=== PATIENT | female | born 1960 | race Caucasian/White ===

== ENCOUNTER 2016-12-19 08:42 | Outpatient (CLI) | payer OTHER, MEDICARE ==
--- NOTE | 2016-12-22 17:32 | Mammography Report ---
DIGITAL SCREENING MAMMOGRAM: 12/20/2016 CLINICAL INDICATION: A 56-year-old for screening, history of bilateral reduction. COMPARISON: 09/2015, 02/2011, 11/2007. TECHNIQUE: Routine CC and MLO projections were obtained of the breasts. The breasts again demonstrate scattered fibroglandular densities bilaterally. Punctate, typically be nign calcifications are present. Small circumscribed nodule in the left lower central breast is stab le. No suspicious masses, clustered microcalcifications, or regions of architectural distortion are identified. IMPRESSION: BENIGN FINDINGS. RECOMMENDATION: ROUTINE ANNUAL SCREENING UNLESS OTHERWISE CLINICALLY INDICATED. BIRADS CATEGORY: 2, BENIGN FINDINGS. STANDARD QUALIFYING STATEMENTS 1. This examination was reviewed with the aid of Computed-Aided Detection (CAD). 2. A negative or benign imaging report should not delay biopsy if clinically suspicious findings are present. Consider surgical consultation if warranted. More than 5% of cancers are not identified b y imaging. 3. Dense breasts may obscure an underlying neoplasm. JOB #: [id number] EXT JOB #:[id number]
== END 2016-12-19 08:43 | disposition home or self-care (01) ==
LOC: DI 08:42
DX: Z12.31 Encounter for screening mammogram for malignant neoplasm of breast (principal)
CPT/HCPCS: 77067

== ENCOUNTER 2018-08-10 14:04 | Outpatient (CLI) | payer OTHER ==
--- NOTE | 2018-08-14 13:42 | Mammography Report ---
Reason: SCREENING MAMMO Procedure Date: 08/10/2018 Accession Number: [id number] / [id number] Procedure: HELEN - Screening Mammo w/Arnaud CPT Code: FULL RESULT: EXAM: Screening Mammo w/Arnaud DATE: 08/10/2018 2:43 PM CLINICAL HISTORY: Routine screening TECHNIQUE: (B) - Bilateral CC and MLO views were obtained. COMPARISON: 12/19/2016, 09/29/2015 and 03/07/2011. PARENCHYMAL PATTERN: (A) - The breasts demonstrate scattered fibroglandular densities bilaterally. FINDINGS: No significant interval change. Faint nodular densities in both breasts are stable. There are no suspicious masses, calcifications, or areas of distortion. IMPRESSION: Negative examination. BI-RADS category 1. RECOMMENDATION: (ANNUAL) - Recommend routine annual screening mammography. BI-RADS CATEGORY: (1) - Negative. STANDARD QUALIFYING STATEMENTS: 1. This examination was not reviewed with the aid of Computer-Aided Detection (CAD). 2. A negative or benign imaging report should not preclude biopsy if clinically suspicious findings are present. 3. Dense breasts may obscure an underlying neoplasm. 4. This examination was reviewed with the aid of 3D breast imaging (tomosynthesis).
== END 2018-08-10 14:05 | disposition home or self-care (01) ==
LOC: DI 14:04
PROVIDERS: ATTEND Internal Medicine
DX: Z12.31 Encounter for screening mammogram for malignant neoplasm of breast (principal)
CPT/HCPCS: 77063; 77067

== ENCOUNTER 2020-12-15 13:51 | Outpatient (CLI) | payer OTHER ==
--- NOTE | 2020-12-16 09:35 | Mammography Report ---
BILATERAL DIGITAL SCREENING MAMMOGRAM 3D/2D: 12/15/2020 CLINICAL: Routine screening. Comparison is made to exams dated: 08/10/2018 mammogram, 12/19/2016 mammogram - [facility], and 08/19/2013 mammogram - [facility]. There are scattered fibroglandular eleme nts in both breasts. No significant masses, calcifications, or other findings are seen in either breast. There has been no significant interval change. IMPRESSION: NEGATIVE There is no mammographic evidence of malignancy. A 1 year screening mammogram is recommended. This exam was interpreted at Station ID: [id number]. NOTE: For mammograms, a report in lay terms will be sent to the patient. Approximately 15% of breast malignancies will not be visualized mammographically. In the management of a palpable breast mass, a negative mammogram must not discourage biopsy of a clinically suspicious lesion. Electronically Signed By: Sidney Cadena M.D. ddp/penrad:12/15/2020 16:29:47 ACR BI-RADS Category 1: Negative 3341F PARENCHYMAL PATTERN: (A) - The breast(s) demonstrate(s) scattered fibroglandular densities. BI-RADS CATEGORY: (1) - 1 RECOMMENDATION: (ANNUAL) - Recommend routine annual screening mammography. [id number] 1 year screening LATERALITY: (B)
== END 2020-12-15 13:52 | disposition home or self-care (01) ==
LOC: DI 13:51
PROVIDERS: ATTEND Physician Assistant
DX: Z12.31 Encounter for screening mammogram for malignant neoplasm of breast (principal)

== ENCOUNTER 2021-09-15 08:42 | Outpatient (CLI) | payer OTHER ==
[2021-09-15 09:45] VITALS: BP 117/75
--- NOTE | 2021-09-15 09:45 | SLEEP CARE CONSULTATION ---
Information from patient questionnaire entered by Ilya Samson MA. I have reviewed and concur with the information entered by Ilya Sasmon MA. This document represents the service I personally performed and the decisions made by me, Fanny Lyman ARNP. History of Present Illness Service Date and Time: 09/15/2021 0842 Reason for Visit: New patient (ONSET 08/19/2019, ) Chief Complaint: reports: Unrefreshed sleep, Snoring (when really sick or stuffy), Other (RESTLESS LEGS) Date of Onset: 2 YEARS 6 MONTHS Usual bedtime: 1100 PM Time it takes to fall asleep: within minutes to a couple hours Snores at night: Yes (SOMETIMES) Observed to quit breathing while asleep: No Sleeps alone due to snoring: No Number of times waking at night: 5-6 Reasons for waking at night: reports: Bathroom. denies: Choking, Snoring, Gasping for air Toss, Turn, or Twitch while sleeping: Yes Recalls having dreams: Yes Usually gets out of bed at: 0800 Feels refreshed in the morning: No (depends on night's sleep) Morning headache: Yes (back of head usually, 4-5 days a week; gone by midday) Sleepy or fatigued during the day: Yes Ever fallen asleep while driving: No Takes day naps: Yes (rarely, only 30 minutes ) Dreams during day naps: No Prior sleep studies: No Additional HPI information: I had the pleasure of seeing LUZ WASHINGTON today regarding the possibility of her having a sleep disorder. Her current complaint is restless legs. Patient states she sometimes snores. She was on methadone but stopped taking it about 2.5 years ago. Since she stopped she has developed lots of leg movements. She is kicking in been in bed, sometimes real hard. She states that since she made appointment to come in the movements have been greatly reduced. She states her snore is usually more apparent when she is congested. She states she does not always wake up feeling refreshed. It usually depends on how she sleeps the night before, lately she has not been sleeping well due to stress. She has an alcoholic daughter who she is dealing with and hoping to get into rehab later today. She does wake up with headaches but states they are usually at the base of her neck and resolve by midday. She has had ex tensive jaw reconstruction surgeries (seven) to fix a bite problem in 1990. Her upper jaw teeth hit the lower teeth causing damage. She still has some pain in her upper jaw. - Parasomnia Symptoms Ever been unable to move upon waking from sleep: No Walks in sleep: No Talks in sleep: No Ever acted out dreams in sleep: No Ever felt weak in the knees when startled or emotional: No Bothered by creepy, crawly, restless sensations in legs: Yes (in bed or resting, better lately) Problems with memory or concentration: No Subjective Initial [place] Sleepiness Scale score: 3 (09/15/2021) Past Medical History Past Medical History: reports: Hypertension, Arthritis, Fibromyalgia, Asthma, Other (multiple jaw surgeries; see scanned medical history) Social History The patient's occupation is a DISABLED. Patient is and lives in [place]. Have you smoked in the past 12 months: No Alcohol use: Yes Alcohol amount and frequency: 1 X MONTHLY Caffeine use: Yes Caffeine amount and frequency: 2-3 X DAILY Family History Family history of sleep disordered breathing: No Family Hx Sleep Apnea: Father: Snoring (maybe) Allergies and Home Medications Known drug allergies: Yes (SULFA LISINOPRIL LOSARTAN) Drug allergies reviewed: Yes Home medication list reviewed: Yes (Clorthalidone, vitamins) Allergy and home medication list: Allergies lisinopril Allergy (Verified 03/15/21 11:56) Unknown Sulfa (Sulfonamide Antibiotics) Allergy (Verified 03/15/21 11:56) Unknown Review of Systems Review of systems same as previous: Yes Weight loss over past 5 years: 10 Cardiovascular: reports: high blood pressure Respiratory: reports: chronic cough Urinary: reports: frequency Neurological: reports: headaches Ear/Nose/Throat: reports: sinus problems Musculoskeletal: reports: joint pain, neck pain, back pain, muscle pain or cramping Immunologic: reports: sneezing, allergies to food or environment Physical Exam Vital signs obtained and entered by: Lizeth SAMSON CMA VASILE Blood Pressure: 117/75 (RESP 16, PULSE 77, LEFT,) Heart Rate: 76 O2 Saturation: 98 (PAPER MASK) Height: 5 ft 4 in Weight: 164 lb 8 oz (CLOTHES) Weight change since last visit: PORTIONS AND WALK, LOST 10 LBS, Body Mass Index: 28.2 BMI Classification: Overweight Neck circumference: 15 (INCHES) Soft palate: long Hard palate: normal Uvula: normal Uvula visualization: 25% Mallampati Class III Tongue: normal in size Tonsils: 1+ Heart: regular rate and rhythm Lungs: clear bilaterally Impression and Plan 1. Suspected Obstructive Sleep Apnea-Hypopnea Syndrome, as suggested by a history of irregular snoring, morning headaches, frequent awakenings during the night, unrefreshed sleep and restless leg movements at night. Patient has history of hypertension. Narrow oropharynx and obesity are common predisposing factors for obstructive sleep apnea-hypopnea syndrome. I recommend proceeding to polysomnography to confirm the diagnosis and to assess severity. If the patient has significant sleep disordered breathing, a manual CPAP titration study will also be performed to find the optimal treatment pressure. I informed the patient of what the sleep studies involve and after some discussion, obtained agreement to proceed. The pathophysiology of obstructive sleep apnea-hypopnea syndrome was discussed with the patient and health risks of cardiovascular and cerebrovascular disease if not treated. Risks of drowsy driving discussed in detail and patient advised to avoid long distance driving and to bone puller at the first sign of drowsiness. Patient agreed to plan. * Schedule polysomnography * Avoid long distance driving or driving when feeling sleepy. * Avoid alcohol, sedative and muscle relaxant around bedtime. * Attempt to lose weight. * Review instructions provided by trained office staff on how to prepare for the sleep study. * Return for follow-up after sleep study completed. Counseling Topics: Weight loss health impact Visit Type: In Office Time Spent with Patient (minutes): 31 Provider Statement: I spent 100% of the Face to Face Visit with the patient with greater than 50% spent counseling the patient and coordination of care.
== END 2021-09-15 08:43 | disposition home or self-care (01) ==
LOC: SC 08:42
PROVIDERS: ATTEND Nurse Practitioner Family
DX: R06.83 Snoring (principal); G47.8 Other sleep disorders; G47.61 Periodic limb movement disorder; R51.9 Headache, unspecified; I10 Essential (primary) hypertension; E66.3 Overweight; Z68.28 Body mass index [BMI] 28.0-28.9, adult
CPT/HCPCS: 99203; 99212

== ENCOUNTER 2021-12-17 11:00 | Outpatient (CLI) | payer OTHER ==
[2021-12-17 11:58] VITALS: BP 124/82
--- NOTE | 2021-12-17 11:58 | SLEEP CARE CONSULTATION ---
Information from patient questionnaire entered by Sky Cortez. I have reviewed and concur with the information entered by Sky Cortez. This document represents the service I personally performed and the decisions made by , Fanny Lyman ARNP. History of Present Illness Service Date and Time: 12/17/2021 1100 Previous diagnosis: Mild, Obstructive Sleep Apnea-Hypopnea Syndrome AHI: 8.0 (in 2021) Reason for follow up: other (ASSSISTANCE WITH CPAP MACHINE) Equipment type: CPAP (ResMed) Equipment obtained from: Other ([place]) Mask style: Nasal pillows Mask brand: Resmed (Leslie FX - provided by [facility]) Prior sleep studies: No Type of Sleep Study: Polysomnography (F/U POLY, 08/23/2021 [facility], POS) HPI additional information: LUZ WASHINGTON was diagnosed to have mild, AHI 8.0, obstructive sleep apnea- hypopnea syndrome and returned today for CPAP therapy follow-up. Sleep Study - Results Type of Sleep Study: Polysomnography (F/U POLY, 08/23/2021 [facility], POS) Prior sleep studies: No CPAP Compliance Data Compliance data discussion: She received her machine about 1.5 weeks ago. She is here to be shown how to use machine and get fitted with mask. Subjective Initial [place] Sleepiness Scale score: 3 (09/15/2021) Current [place] Sleepiness Scale score: 2 (12/17/21) Allergies and Home Medications Drug allergies reviewed: Yes (lisinopril, sulfa) Home medication list reviewed: Yes (no changes) Allergy and home medication list: Allergies lisinopril Allergy (Verified 03/15/21 11:56) Unknown Sulfa (Sulfonamide Antibiotics) Allergy (Verified 03/15/21 11:56) Unknown Review of Systems Review of systems same as previous: Yes (no changes) Physical Exam Vital signs obtained and entered by: VASILE BLAKE Blood Pressure: 124/82 (left arm ) Cuff size: regular Heart Rate: 71 O2 Saturation: 98 Height: 5 ft 4 in Weight: 166 lb Body Mass Index: 28.5 BMI Classification: Overweight Impression and Plan 1. Obstructive Sleep Apnea-Hypopnea Syndrome, mild. Patient comes in today for assistance in setting up her new CPAP and a mask fitting. She did not get any support like this from her DME and asked for help in our office. I showed patient how to turn on her device, adjustments she can make with humidity or heated hose and how to program supervisor tubing and mask. I had our Lead Felt Finisher, Sidney, come in and fit her with her mask. She was fitted with a [employer] Dreamwear nasal cushion mask because the nasal pillows mask she brought in did not fit well and patient did not find it comfortable. She liked the fit of the Dreamwear nasal cushion mask. She voiced understanding of teaching and demonstrated ability to use her CPAP. Patient will follow up with us in 1 month to check her compliance on her CPAP and see how she is doing with therapy. Patient's apnea severity and rationale for treatment to reduce apnea, improve sleep quality and reduce cardiovascular and cerebrovascular events was reviewed. I also reviewed the benefit of consistent device use of CPAP for hypertension, fibromyalgia and asthma. * Auto CPAP pressure at 4-15 cmH2O * Patient fitted to [employer] Dreamwear nasal cushion mask * Notify me if snoring with mask or feeling that the pressure is too much or too little * Call this office if any problems using CPAP * Return for follow up in one month, or sooner if concerns arise Mask provided: Yes Follow up with Sleep Care in: 1-2 months Visit Type: In Office Time Spent with Patient (minutes): 22 Provider Statement: I spent 100% of the Face to Face Visit with the patient with greater than 50% spent counseling the patient and coordination of care.
== END 2021-12-17 11:01 | disposition home or self-care (01) ==
LOC: SC 11:00
PROVIDERS: ATTEND Nurse Practitioner Family
DX: G47.33 Obstructive sleep apnea (adult) (pediatric) (principal)
CPT/HCPCS: 99212; 99213

== ENCOUNTER 2022-01-21 10:56 | Outpatient (CLI) | payer OTHER ==
[2022-01-21 11:46] VITALS: BP 128/76
--- NOTE | 2022-01-21 11:46 | SLEEP CARE CONSULTATION ---
Information from patient questionnaire entered by Davide Saleh. I have reviewed and concur with the information entered by Davide Saleh. This document represents the service I personally performed and the decisions made by me, Fanny Lyman ARNP. History of Present Illness Service Date and Time: 01/21/2022 1056 Previous diagnosis: Mild, Obstructive Sleep Apnea-Hypopnea Syndrome AHI: 8.0 (in 2021) Reason for follow up: first compliance Equipment type: CPAP (ResMed) Equipment obtained from: Other ([place]) Mask style: Nasal Mask brand: Respironics (Dreamwear) Backup mask available: Yes (other mask) Prior sleep studies: No Type of Sleep Study: Polysomnography (F/U POLY, 08/23/2021 [facility], POS) HPI additional information: LUZ WASHINGTON was diagnosed to have mild, AHI 8.0, obstructive sleep apnea- hypopnea syndrome and returned today for CPAP therapy first compliance follow- up. Sleep Study - Results Type of Sleep Study: Polysomnography (F/U POLY, 08/23/2021 [facility], POS) Prior sleep studies: No CPAP Compliance Data - Data Reviewed with Patient Average duration of nightly device use: 3 hours 51 minutes Compliance rate %: 7 (10/16 days) Current pressure setting (cmH2O): 4-20 (median 7.5, avg 9.9, max 10.5) Average residual AHI: 1.2 Central apnea: 0.8 Obstructive apnea: 0.1 Subjective Patient concerns: reports: aerophagia (just a couple times), dry mouth, nose, throat, other (hurting bottom of nose ). denies: mask discomfort, air blowing in eyes, mask leak noise, condensation in mask/hose, nasal congestion, epistaxis Observed to snore while using device: No Current pressure setting perceived as: comfortable On therapy, patient: reports: other (not difference yet). denies: drowsiness while driving Initial [place] Sleepiness Scale score: 3 (09/15/2021) Current [place] Sleepiness Scale score: 2 Allergies and Home Medications Drug allergies reviewed: Yes (lisinopril, sulfa) Home medication list reviewed: Yes (no changes) Review of Systems Review of systems same as previous: Yes (no changes) Physical Exam Vital signs obtained and entered by: DAVIDE Hurtado MA Blood Pressure: 128/76 (left arm) Cuff size: regular Heart Rate: 63 O2 Saturation: 97 Height: 5 ft 4 in Weight: 162 lb 9.6 oz Body Mass Index: 27.8 BMI Classification: Overweight Impression and Plan 1. Obstructive Sleep Apnea-Hypopnea Syndrome, mild, with poor treatment compliance and good apnea control. Patient has been having some pain under nose from the nasal cushion on her Dreamwear mask. She cannot tolerate the pain after a few hours use. She also experienced some aerophagia the first couple nights but this has improved. I had her try a nasal pillows cushion of the Dreamwear mask and she is going to see if this is more comfortable. She does not want to try a full face mask because it would sit on bridge of nose where she is sensitive to pain due to previous issues/injuries. The patients pressure will be changed to autoCPAP 7-10 cmH20 to reflect pressure being used. Patient advised to contact me if pressure change is uncomfortable so that it can be adjusted. Goals for apnea control discussed. Patient's apnea severity and rationale for treatment to reduce apnea, improve sleep quality and reduce cardiovascular and cerebrovascular events was reviewed. I also reviewed the benefit of consistent device use of CPAP for hypertension, fibromyalgia and asthma. She is going on a month long cruise next week and is not sure she wants to take the machine with her. I advised her to try so she can get her compliance up for the insurance as well as the benefit for her health. She states she will think on it. I will follow up with her when she returns. 2. Overweight, unspecified. Currently patients BMI is 27.9. Obesity increases the risk of apnea, CPAP pressure requirements and overall health risks especiall y cardiovascular and diabetes. Thus patient is advised to lose weight. Weight loss can be done with reducing portion size, reducing refined foods and balancing content with vegetables, fruit and whole grain foods. In addition, patient encouraged to get regular exercise. * Change auto CPAP pressure to 7-10 cmH2O * Notify me if snoring with mask or feeling that the pressure is too much or too little * Attempt to lose weight * Call this office if any problems using CPAP * Return for follow up in 1-2 months, or sooner if concerns arise Counseling Topics: Spare mask, Weight loss health impact Visit Type: In Office Time Spent with Patient (minutes): 22 Provider Statement: I spent 100% of the Face to Face Visit with the patient with greater than 50% spent counseling the patient and coordination of care.
== END 2022-01-21 10:57 | disposition home or self-care (01) ==
LOC: SC 10:56
PROVIDERS: ATTEND Nurse Practitioner Family
DX: G47.33 Obstructive sleep apnea (adult) (pediatric) (principal); E66.3 Overweight; Z68.27 Body mass index [BMI] 27.0-27.9, adult
CPT/HCPCS: 99212; 99213

== ENCOUNTER 2022-03-02 13:12 | Outpatient (CLI) | payer OTHER ==
[2022-03-02 13:34] VITALS: BP 142/84
--- NOTE | 2022-03-02 13:34 | SLEEP CARE CONSULTATION ---
Information from patient questionnaire entered by Davide Saleh. I have reviewed and concur with the information entered by Davide Saleh. This document represents the service I personally performed and the decisions made by , Fanny Lyman ARNP. History of Present Illness Service Date and Time: 03/02/2022 1312 Previous diagnosis: Mild, Obstructive Sleep Apnea-Hypopnea Syndrome AHI: 8.0 (in 2021) Reason for follow up: one month (F/U) Equipment type: CPAP (ResMed Airsense 11) Equipment obtained from: [place] ([place]) Mask style: Nasal pillows Backup mask available: Yes (other mask) Prior sleep studies: No Type of Sleep Study: Polysomnography (F/U POLY, 08/23/2021 [facility], POS) HPI additional information: LUZ WASHINGTON was diagnosed to have mild, AHI 8.0, obstructive sleep apnea- hypopnea syndrome and returned today for CPAP therapy one month follow-up. Sleep Study - Results Type of Sleep Study: Polysomnography (F/U POLY, 08/23/2021 [facility], POS) Prior sleep studies: No CPAP Compliance Data - Data Reviewed with Patient Average duration of nightly device use: 3 hours 51 mins Compliance rate %: 7 (-12/27/2021) Current pressure setting (cmH2O): 4-20 Average residual AHI: 1.2 Central apnea: 0.8 Obstructive apnea: 0.1 Compliance data discussion: She states she took her CPAP with her on vacation but she was unable to use it because she was missing a piece of the hose connection. Subjective Missed days of use due to: reports: travel, other (lost hose connection ) Patient concerns: reports: mask discomfort (has a new mask she will try once she can get hose to connect to device). denies: aerophagia, air blowing in eyes, mask leak noise, condensation in mask/hose, nasal congestion, dry mouth, nose, throat, epistaxis Observed to snore while using device: No Current pressure setting perceived as: comfortable On therapy, patient: reports: sleeping better, awakening more refreshed, being more awake and alert during the day, more rested overall. denies: drowsiness while driving Initial [place] Sleepiness Scale score: 3 (09/15/2021) Current [place] Sleepiness Scale score: 0 (03/02/22) Allergies and Home Medications Drug allergies reviewed: Yes (lisinopril, sulfa) Home medication list reviewed: Yes (no changes) Allergy and home medication list: Allergies lisinopril Allergy (Verified 01/21/22 11:20) Unknown Sulfa (Sulfonamide Antibiotics) Allergy (Verified 01/21/22 11:20) Unknown Review of Systems Review of systems same as previous: Yes (no changes) Physical Exam Vital signs obtained and entered by: DAVIDE Hurtado MA Blood Pressure: 142/84 (LEFT ARM) Cuff size: regular Heart Rate: 70 O2 Saturation: 98 Height: 5 ft 4 in Weight: 166 lb Body Mass Index: 28.5 BMI Classification: Overweight Impression and Plan 1. Obstructive Sleep Apnea-Hypopnea Syndrome, mild, with poor treatment compliance and good apnea control. On CPAP therapy, the patient has better sleep quality and is more rested overall. She was unable to use her CPAP when on vacation because a hose connection was lost. She will need to get a replacement and then I will have her follow up in about a month. Patient's apnea severity and rationale for treatment to reduce apnea, improve sleep quality and reduce cardiovascular and cerebrovascular events was reviewed. I also reviewed the benefit of consistent device use of CPAP for hypertension, fibromyalgia and as thma. 2. Overweight unspecified. Currently patients BMI is 28.5. Obesity increases the risk of apnea, CPAP pressure requirements and overall health risks especially cardiovascular and diabetes. Thus patient is advised to lose weight. * Continue auto CPAP pressure at 7-10 cmH2O * obtain hose connection to be able to use CPAP * Notify me if snoring with mask or feeling that the pressure is too much or too little * Attempt to lose weight * Call this office if any problems using CPAP * Return for follow up in 1-2 months, or sooner if concerns arise Counseling Topics: Spare mask, Weight loss health impact Visit Type: In Office Time Spent with Patient (minutes): 12 Provider Statement: I spent 100% of the Face to Face Visit with the patient with greater than 50% spent counseling the patient and coordination of care.
== END 2022-03-02 13:13 | disposition home or self-care (01) ==
LOC: SC 13:12
PROVIDERS: ATTEND Nurse Practitioner Family
DX: G47.33 Obstructive sleep apnea (adult) (pediatric) (principal); E66.3 Overweight; Z68.28 Body mass index [BMI] 28.0-28.9, adult
CPT/HCPCS: 99212

== ENCOUNTER 2022-05-06 11:12 | Emergency (ER) | payer MEDICARE, OTHER ==
[2022-05-06 11:18] VITALS: BP 140/90
[2022-05-06 11:28] LABS: BILIRUBIN,URINE NEGATIVE (NEGATIVE); GLUCOSE, URINE (UA) NEGATIVE (NEGATIVE); KETONES,URINE (UA) NEGATIVE (NEGATIVE); LEUKOCYTE ESTERASE, URINE MODERATE (NEGATIVE); NITRITE,URINE POSITIVE (NEGATIVE); OCCULT BLOOD,URINE SMALL (NEGATIVE); PH,URINE 6.5 PH (5.0-7.5); PROTEIN,URINE TRACE mg/dL (NEGATIVE); UROBILINOGEN,URINE 0.2 (NORMAL) E.U./dL (NORMAL)
[2022-05-06 11:29] LABS: CLARITY,URINE SL. CLOUDY (CLEAR)
[2022-05-06] MEDS ORDERED: NITROFURANTOIN MACRO 100 MG CAPSULE PO STA (11:33)
--- NOTE | 2022-05-06 11:36 | ED Physician Documentation ---
PD HPI FEMALE - Stated complaint Stated Complaint: F - Chief complaint Chief Complaint: UTI - History obtained from History obtained from: Patient - History of Present Illness Timing - onset: Today Timing - duration: Days (1) Timing - details: Gradual onset Associated symptoms: Dysuria, Urinary frequency. No: Fever, Vaginal pain, Vaginal bleeding, Vaginal discharge, Hematuria - Additional information Additional information: 62-year-old female presents to the emergency department complaining of dysuria and urinary frequency. Started last night. Has history of UTI in the past. This feels similar. No fever. no chills. no back pain. no vomiting. no abd pain. Review of Systems Skin: denies: Rash Musculoskeletal: denies: Neck pain, Back pain Neurologic: denies: Headache PD PAST MEDICAL HISTORY - Past Medical History Past Medical History: Yes Musculoskeletal: Osteoarthritis, Fibromyalgia, Chronic back pain - Present Medications Home Medications: Ambulatory Orders Medication Instructions Recorded Confirmed Nitrofurantoin [Macrobid] 100 mg PO BID #10 cap 03/15/21 03/02/22 Phenazopyridine HCl [Pyridium] 200 mg PO TID PRN #6 tablet 03/15/21 03/02/22 Nitrofurantoin [Macrobid] 100 mg PO BID #10 cap 05/06/22 - Allergies Allergies/Adverse Reactions: Allergies Allergy/AdvReac Type Severity Reaction Status Date / Time lisinopril Allergy Unknown Verified 05/06/22 11:15 Sulfa (Sulfonamide Allergy Unknown Verified 05/06/22 11:15 Antibiotics) PD ED PE NORMAL - Vitals Vital signs reviewed: Yes - General General: Alert and oriented X 3, No acute distress - HEENT HEENT: Moist mucous membranes - Neck Neck: Supple, no meningeal sign - Cardiac Cardiac: RRR - Respiratory Respiratory: No respiratory distress, Clear bilaterally - Abdomen Abdomen: Soft, Non tender, Non distended - Back Back: No CVA TTP, No spinal TTP - Derm Derm: Warm and dry - Neuro Neuro: Alert and oriented X 3 Results - Vitals Vitals: Vital Signs - 24 hr 05/06/22 11:15 Temperature 36.5 C Heart Rate 80 Respiratory 16 Rate Blood Pressure 140/90 H O2 Saturation 98 Oxygen O2 Source Room air - Labs Labs: Laboratory Tests 05/06/22 11:22 Urine Color DARK YELLOW Urine Clarity SL. CLOUDY Urine pH 6.5 Ur Specific [place] 1.010 Urine Protein TRACE Urine Glucose (UA) NEGATIVE Urine Ketones NEGATIVE Urine Occult Blood SMALL H Urine Nitrite POSITIVE H Urine Bilirubin NEGATIVE Urine Urobilinogen 0.2 (NORMAL) Ur Leukocyte Esterase MODERATE H Urine RBC 6-10 H Urine WBC >25 H Ur Squamous Epith Cells FEW Squamous Urine Bacteria Few Ur Microscopic Review INDICATED Urine Culture Comments INDICATED PD Medical Decision Making - ED course Complexity details: reviewed results, re-evaluated patient, considered differential, d/w patient ED course: Patient with UTI. Urinalysis is consistent with this. No evidence of sepsis. No evidence of pyelonephritis. Patient is well-appearing, nontoxic. Patient counseled regarding signs and symptoms for which I believe and urgent re- evaluation would be necessary. Patient with good understanding of and agreement to plan and is comfortable going home at this time This document was made in part using voice recognition software. While efforts are made to proofread this document, sound alike and grammatical errors may occur. Departure - Departure Disposition: 01 Home, Self Care Clinical Impression: Urinary tract infection Qualifiers: Urinary tract infection type: acute cystitis Hematuria presence: without hematuria Qualified Code(s): N30.00 - Acute cystitis without hematuria Condition: Good Instructions: ED UTI Cystitis Female Follow-Up: your,doctor as needed [Other] Prescriptions: Nitrofurantoin [Macrobid] 100 mg PO BID #10 cap Comments: Your prescription was sent to the [facility]. Please follow-up with your doctor for further care. Please return if you worsen. Take all antibiotics until gone. Discharge Date/Time: 05/06/22 11:47
[2022-05-06 11:48] LABS: WBC,URINE >25 /HPF (0-5)
[2022-05-06 11:49] LABS: BACTERIA,URINE Few /HPF (None Seen); SQUAMOUS EPITHELIAL CELL,UR FEW Squamous (<= Few)
== END 2022-05-06 11:47 | disposition home or self-care (01) ==
LOC: ED 11:12
DX: N30.00 Acute cystitis without hematuria (principal); Z87.440 Personal history of urinary (tract) infections; Z88.2 Allergy status to sulfonamides
CPT/HCPCS: 81001; 87077; 87086; 87181; 99283; A9270; 81003

== ENCOUNTER 2022-10-12 11:03 | Outpatient (CLI) | payer OTHER ==
--- NOTE | 2022-10-12 11:32 | Sleep Patient Instructions ---
Sleep Center Visit Summary - Patient Visit Information Reason for Visit: Seven month followup for PAP therapy - Patient Instructions Additional Instructions: You were here for follow up of CPAP therapy. You will be continued on CPAP therapy with pressure at 4-10 cmH2O. Please let us know if the pressure change is uncomfortable and we can make further adjustments of the pressure. You should follow up with sleep care in 1-2 months. You may contact us sooner for any questions or concerns. - Clinic Information Contact: [facility] [address] [place] [address] [email or web address] T: [phone]
--- NOTE | 2022-10-12 11:40 | SLEEP CARE CONSULTATION ---
Information from patient questionnaire entered by Davide Saleh. I have reviewed and concur with the information entered by Davide Saleh. This document represents the service I personally performed and the decisions made by , Fanny Lyman ARNP. History of Present Illness Service Date and Time: 10/12/2022 1103 Previous diagnosis: Mild, Obstructive Sleep Apnea-Hypopnea Syndrome AHI: 8.0 (in 2021) Reason for follow up: other (7 MONTH F/U SD CARD NEEDED) Equipment type: CPAP (ResMed Airsense 11; s/u 11/2021) Equipment obtained from: Other ([place]) Mask style: Nasal pillows Backup mask available: Yes (other mask) Prior sleep studies: No Type of Sleep Study: Polysomnography (F/U POLY, 08/23/2021 [facility], [place]) HPI additional information: LUZ WASHINGTON was diagnosed to have mild, AHI 8, obstructive sleep apnea- hypopnea syndrome and returned today for CPAP therapy seven month follow-up. Sleep Study - Results Type of Sleep Study: Polysomnography (F/U POLY, 08/23/2021 [facility], POS) Prior sleep studies: No CPAP Compliance Data - Data Reviewed with Patient Average duration of nightly device use: 10 minutes Compliance rate %: 0 (1180 days used) Current pressure setting (cmH2O): 7-10 Average residual AHI: 0 Average large leak: 6 L/min Subjective Patient concerns: reports: aerophagia, mask leak noise (leaking on top of head, irritating). denies: mask discomfort, air blowing in eyes, condensation in mask/hose, nasal congestion, dry mouth, nose, throat, epistaxis Observed to snore while using device: No Current pressure setting perceived as: too high On therapy, patient: denies: drowsiness while driving Initial [place] Sleepiness Scale score: 3 (09/15/2021) Current [place] Sleepiness Scale score: 2 (10/12/22) Allergies and Home Medications Known drug allergies: Yes (as listed) Drug allergies reviewed: Yes Home medication list reviewed: Yes (Pregablin 75 mg cap; Colerys 0.6 tab; Macrobid 100 mg cap) Allergy and home medication list: Allergies lisinopril Allergy (Verified 10/11/22 13:44) Unknown losartan Allergy (Verified 10/11/22 13:44) Respiratory Sulfa (Sulfonamide Antibiotics) Allergy (Verified 10/11/22 13:44) Unknown Review of Systems Review of systems same as previous: No (pinched nerves in back, in PT) Physical Exam Vital signs obtained and entered by: DAVIDE Hurtado MA Blood Pressure: 118/76 (LEFT ARM) Cuff size: regular Heart Rate: 71 O2 Saturation: 97 Height: 5 ft 4 in Weight: 173 lb 12.8 oz Body Mass Index: 29.8 BMI Classification: Overweight Impression and Plan 1. Obstructive Sleep Apnea-Hypopnea Syndrome, mild, with poor treatment compliance and unknown apnea control. Patient states she could not use her CPAP because an adaptor for her mask was lost after her last appointment with us. She reached out to the ID and after some time was able to get a new hose and a new mask. She does not like the Dreamwear nasal cushion because the air leaks at the back of her head and it is "irritating" to her. She has a nasal pillows mask that she would rather use but does not think it will hook to her hose. We tried in the office and it did fit and she states she will try this mask now. She feels like the pressure was too high with the mask leaking under her nose. I wi ll adjust her pressure to 4-10 cmH2O to help her to get used to the lower pressure. Changing to the nasal pillows mask may also reduce air leaking and be more comfortable. Patient's apnea severity and rationale for treatment to reduce apnea, improve sleep quality and reduce cardiovascular and cerebrovascular events was reviewed. I also reviewed the benefit of consistent device use of CPAP for hypertension, fibromyalgia and asthma. 2. Overweight, unspecified. Currently patients BMI is 29.8. Obesity increases the risk of apnea, CPAP pressure requirements and overall health risks especially cardiovascular and diabetes. Thus patient is advised to lose weight. * Change auto CPAP pressure to 4-10 cmH2O * Notify me if snoring with mask or feeling that the pressure is too much or too little * Attempt to lose weight * Call this office if any problems using CPAP * Return for follow up in 1-2 months, or sooner if concerns arise Counseling Topics: Spare mask, Weight loss health impact Visit Type: In Office Time Spent with Patient (minutes): 25 Provider Statement: I spent 100% of the Face to Face Visit with the patient with greater than 50% spent counseling the patient and coordination of care.
[2022-10-12 11:46] VITALS: BP 118/76
== END 2022-10-12 11:04 | disposition home or self-care (01) ==
LOC: SC 11:03
PROVIDERS: ATTEND Nurse Practitioner Family
DX: G47.33 Obstructive sleep apnea (adult) (pediatric) (principal); E66.3 Overweight; Z68.29 Body mass index [BMI] 29.0-29.9, adult
CPT/HCPCS: 99212; 99213

== ENCOUNTER 2022-11-22 10:47 | Outpatient (CLI) | payer OTHER ==
--- NOTE | 2022-11-22 11:22 | Sleep Patient Instructions ---
Sleep Center Visit Summary - Patient Visit Information Reason for Visit: 6 WEEK FOLLOW UP FOR PAP THERAPY - Patient Instructions Additional Instructions: You were here for follow up of CPAP therapy. You will be continued on CPAP therapy with pressure at 4-10 cmH2O. You were fitted to a [employer]wear nasal cushion mask, size small. You should follow up with sleep care in 1-2 months. You may contact us sooner for any questions or concerns. - Clinic Information Contact: [facility] [address] [place] [address] [email or web address] T: [phone]
--- NOTE | 2022-11-22 11:26 | SLEEP CARE CONSULTATION ---
Information from patient questionnaire entered by Davide Saleh. I have reviewed and concur with the information entered by Davide Saleh. This document represents the service I personally performed and the decisions made by , Fanny Lyman ARNP. History of Present Illness Service Date and Time: 11/22/2022 1047 Previous diagnosis: Mild, Obstructive Sleep Apnea-Hypopnea Syndrome AHI: 8 (in 2021) Reason for follow up: other (6 WEEK F/U) Equipment type: CPAP (ResMed Airsense 11; s/u 11/2021) Equipment obtained from: [employer] ([place]) Mask style: Nasal (with a nasal pillows mask as alternative) Backup mask available: Yes (other mask) Prior sleep studies: No Type of Sleep Study: Polysomnography (F/U POLY, 08/23/2021 [facility], POS) HPI additional information: LUZ WASHINGTON was diagnosed to have mild, AHI 8, obstructive sleep apnea- hypopnea syndrome and returned today for CPAP therapy six weeks follow-up. Sleep Study - Results Type of Sleep Study: Polysomnography (F/U POLY, 08/23/2021 [facility], POS) Prior sleep studies: No CPAP Compliance Data - Data Reviewed with Patient Average duration of nightly device use: 3 hours 22 minutes Compliance rate %: 23 (28/44 days used) Current pressure setting (cmH2O): 4-10 Average residual AHI: 0.7 Central apnea: 0.1 Obstructive apnea: 0.4 Average large leak: 0.3 L/min Subjective Missed days of use due to: reports: mask issues (pain in face with type of mask pressure ) Patient concerns: reports: mask discomfort (has had facial surgeries and residual pain with wearing mask), other (wheezing during the day; headaches from pain from mask). denies: aerophagia, air blowing in eyes, mask leak noise, condensation in mask/hose, nasal congestion, dry mouth, nose, throat, epistaxis Observed to snore while using device: No Current pressure setting perceived as: comfortable On therapy, patient: reports: other (she does not feel different right now). denies: drowsiness while driving Initial [place] Sleepiness Scale score: 3 (09/15/2021) Current [place] Sleepiness Scale score: 1 (11/22/22) Allergies and Home Medications Known drug allergies: Yes (as listed) Drug allergies reviewed: Yes Home medication list reviewed: Yes (as updated in EMR) Allergy and home medication list: Allergies lisinopril Allergy (Verified 11/18/22 09:30) Unknown losartan Allergy (Verified 11/18/22 09:30) Respiratory Sulfa (Sulfonamide Antibiotics) Allergy (Verified 11/18/22 09:30) Unknown Review of Systems Review of systems same as previous: Yes (no changes) Physical Exam Vital signs obtained and entered by: DAVIDE Hurtado MA Blood Pressure: 128/76 (LEFT ARM) Cuff size: regular Heart Rate: 63 O2 Saturation: 97 Height: 5 ft 4 in Weight: 176 lb 6.4 oz Body Mass Index: 30.2 BMI Classification: Obese Impression and Plan 1. Obstructive Sleep Apnea-Hypopnea Syndrome, mild, with good treatment compliance and poor apnea control. She has been having trouble with tolerating the mask because the pressure of the mask causes an increase in pain. She has had previous facial injuries and surgeries which causes difficulty/pain and headaches with pressure above her nose and sides of her nose. She states she u sed to be on a nasal cushion that went under her nose that was more comfortable. She does not tolerate the nasal pillows that go into her nose either, because it also causes pain. I fit her with a DreamWear nasal cushion, small headgear and nasal cushion. She felt it would work well and be more comfortable. I will send this sample home with her and she can order more supplies as needed. I will have her follow-up in 1 to 2 months to recheck her compliance. Patient's apnea severity and rationale for treatment to reduce apnea, improve sleep quality and reduce cardiovascular and cerebrovascular events was reviewed. I also reviewed the benefit of consistent device use of CPAP for hypertension, fibromyalgia and asthma. 2. Obesity, unspecified. Currently patients BMI is 30.2. Obesity increases the risk of apnea, CPAP pressure requirements and overall health risks especially cardiovascular and diabetes. Thus patient is advised to lose weight. * Continue auto CPAP pressure at 4-10 cmH2O * Patient fitted to Dreamwear nasal cushion mask, small cushion and headgear * Notify me if snoring with mask or feeling that the pressure is too much or too little * Attempt to lose weight * Call this office if any problems using CPAP * Return for follow up in 1-2 months, or sooner if concerns arise Mask provided: Yes Counseling Topics: Spare mask, Weight loss health impact Visit Type: In Office Time Spent with Patient (minutes): 24 Provider Statement: I spent 100% of the Face to Face Visit with the patient with greater than 50% spent counseling the patient and coordination of care.
[2022-11-22 11:30] VITALS: BP 128/76; O2SAT 97
== END 2022-11-22 10:48 | disposition home or self-care (01) ==
LOC: SC 10:47
PROVIDERS: ATTEND Nurse Practitioner Family
DX: G47.33 Obstructive sleep apnea (adult) (pediatric) (principal); E66.9 Obesity, unspecified; Z68.30 Body mass index [BMI] 30.0-30.9, adult
CPT/HCPCS: 99212; 99213

== ENCOUNTER 2023-02-17 13:48 | Outpatient (CLI) | payer OTHER ==
--- NOTE | 2023-02-20 10:58 | Mammography Report ---
BILATERAL DIGITAL SCREENING MAMMOGRAM 3D/2D: 02/17/2023 CLINICAL: Routine screening. Comparison is made to exams dated: 12/15/2020 mammogram, 08/10/2018 mammogram, [facility] 10/13/2015 mammogram, 09/29/2015 mammogram - [facility], and 08/19/2013 m ammogram - [facility]. Both breasts are almost entirely fatty (category a/<25% glandular tissue). No significant masses, calcifications, or other findings are seen in either breast. There has been no significant interval change. IMPRESSION: NEGATIVE There is no mammographic evidence of malignancy. A 1 year screening mammogram is recommended. Based on the Tyrer Cuzick model (a risk assessment model) the patients lifetime risk is 3.1% and her 10 year risk is 1.3%. According to the ACR, ACS, and NCCN guidelines, an annual breast MRI exam gene g with mammogram is recommended if the patients lifetime risk is 20% or greater. This exam was interpreted at Station ID: [id number]. NOTE: For mammograms, a report in lay terms will be sent to the patient. Approximately 15% of breast malignancies will not be visualized mammographically. In the management of a palpable breast mass, a negative mammogram must not discourage biopsy of a clinically suspicious lesion. Electronically Signed By: Stephany [email or web address]:02/17/2023 17:25:31 letter sent: No_Letter ACR BI-RADS Category 1: Negative 3341F PARENCHYMAL PATTERN: (F) - The breast(s) demonstrate(s) diffuse fatty replacement. BI-RADS CATEGORY: (1) - 1 Mammogram [id number] 1 year screening LATERALITY: (B)
== END 2023-02-17 13:49 | disposition home or self-care (01) ==
LOC: DI 13:48
PROVIDERS: ATTEND Physician Assistant
DX: Z12.31 Encounter for screening mammogram for malignant neoplasm of breast (principal)

== ENCOUNTER 2023-05-09 14:30 | Outpatient (CLI) | payer MEDICARE, OTHER | END 2023-05-09 14:45 | disposition home or self-care (01) | LOC: LAB.N 14:30 | PROVIDERS: ATTEND Family Medicine | DX: R30.0 Dysuria (principal) | CPT/HCPCS: 87077; 87086; 87181 ==

== ENCOUNTER 2023-07-04 18:21 | Outpatient (CLI) | payer MEDICARE, OTHER | END 2023-07-04 18:23 | disposition home or self-care (01) | LOC: LAB.N 18:21 | PROVIDERS: ATTEND Family Medicine | DX: N39.0 Urinary tract infection, site not specified (principal) | CPT/HCPCS: 87086 ==

== ENCOUNTER 2023-11-17 10:15 | Outpatient (CLI) | payer MEDICARE, OTHER | END 2023-11-17 10:30 | disposition home or self-care (01) | LOC: LAB.N 10:15 | PROVIDERS: ATTEND Family Medicine | DX: N39.0 Urinary tract infection, site not specified (principal) | CPT/HCPCS: 87077; 87086; 87181 ==